=== PATIENT | male | born 1995 | race Caucasian/White ===

== ENCOUNTER 2016-07-02 18:38 | Emergency (ER) | payer OTHER ==
[2016-07-02 18:43] VITALS: BP 120/64; PULSE 64; TEMP 97.8; BMI 21.4
--- NOTE | 2016-07-02 19:45 | PDOC ---
History of Present Illness - History of Present Illness Initial Comments: 07/02/16 19:53 The patient is a 21 year old male with no past medical hx who presents to the ED requesting a physical. The patient reports he has never had a physical and is requesting one at this time. He is also complaining of bilateral testicular pain for months and body pains for the past few years. The patient denies STD testing in the past but reports he is not sexually active. The patient denies any fever, chills The patient denies any abdominal pain, nausea, vomiting, diarrhea The patient denies any dysuria, frequency, hematuria Surgical: None Allergies: NKDA Family hx: Mother has HTN, siblings are alive and well The patient speaks New Zealander, hx obtained through land resource specialist phone, [phone] <Kelli Palma - Last Filed: 07/02/16 23:16> <Selma Spicer - Last Filed: 07/03/16 01:07> - General Chief Complaint: Pain, Acute Stated Complaint: PAIN, ACUTE Time Seen by Provider: 07/02/16 19:21 Past History <Kelli Palma - Last Filed: 07/02/16 23:16> - Past Medical History Other medical history: PATIENT DENIES PAST MEDICAL HISTORY - Psycho/Social/Smoking Cessation Hx Suicidal Ideation: No Smoking History: Current some day smoker Number of Cigarettes Smoked Daily: 0 Information on smoking cessation initiated: No Hx Alcohol Use: Yes (WEEKENDS) Drug/Substance Use Hx: No <Selma Spicer - Last Filed: 07/03/16 01:07> - Past Medical History Allergies/Adverse Reactions: Allergies Allergy/AdvReac Type Severity Reaction Status Date / Time No Known Allergies Allergy Verified 07/02/16 18:43 Home Medications: Ambulatory Orders NK [No Known Home Medication] 07/02/16 Review of Systems - Review of Systems Able to Perform ROS?: Yes Comments:: 07/02/16 19:53 CONSTITUTIONAL: Absent: fever, chills, diaphoresis, generalized weakness, malaise, loss of appetite HEENT: Absent: rhinorrhea, nasal congestion, throat pain, throat swelling, difficulty swallowing, mouth swelling, ear pain, eye pain, visual Changes CARDIOVASCULAR: Absent: chest pain, syncope, palpitations, irregular heart rate, lightheadedness , peripheral edema RESPIRATORY: Absent: cough, shortness of breath, dyspnea with exertion, orthopnea, wheezing, stridor, hemoptysis GASTROINTESTINAL: Absent: abdominal pain, abdominal distension, nausea, vomiting, diarrhea, constipation, melena, hematochezia GENITOURINARY: +Testicular pain. Absent: dysuria, frequency, urgency, hesitancy, hematuria, flank pain MUSCULOSKELETAL: +Muscle pains. Absent: joint swelling SKIN: Absent: rash, itching, pallor HEMATOLOGIC/IMMUNOLOGIC: Absent: easy bleeding, easy bruising, lymphadenopathy, frequent infections ENDOCRINE: Absent: unexplained weight gain, unexplained weight loss, heat intolerance, cold intolerance NEUROLOGIC: Absent: headache, focal weakness or paresthesias, dizziness, unsteady gait, seizure, mental status changes, bladder or bowel incontinence PSYCHIATRIC: Absent: anxiety, depression, suicidal or homicidal ideation, hallucinations. <Kelli Palma - Last Filed: 07/02/16 23:16> *Physical Exam - Vital Signs Last Vital Signs Temp Pulse Resp BP Pulse Ox 97.8 F 64 18 120/64 100 07/02/16 18:39 07/02/16 18:39 07/02/16 18:39 07/02/16 18:39 07/02/16 18:39 - Physical Exam Comments: 07/02/16 19:53 GENERAL: Well developed, well nourished. Awake and alert. No acute distress. HEENT: Normocephalic, atraumatic. PERRLA, EOMI. No conjunctival pallor. Sclera are non- icteric. Moist mucous membranes. Oropharynx is clear. NECK: Supple. Full ROM. No JVD. Carotid pulses 2+ and symmetric, without bruits. No thyromegaly. No lymphadenopathy. CARDIOVASCULAR: Regular rate and rhythm. No murmurs, rubs, or gallops. Distal pulses are 2+ and symmetric. PULMONARY: No evidence of respiratory distress. Lungs clear to auscultation bilaterally. No wheezing, rales or rhonchi. ABDOMINAL: Soft. Non-tender. Non-distended. No rebound or guarding. No organomegaly. Normoactive bowel sounds. MUSCULOSKELETAL +No inguinal lymph nodes or hernias. Normal range of motion at all joints. No bony deformities or tenderness. No CVA tenderness. EXTREMITIES: No cyanosis. No clubbing. No edema. No calf tenderness. SKIN: Warm and dry. Normal capillary refill. No rashes. No jaundice. NEUROLOGICAL: Alert, awake, appropriate. Cranial nerves 2-12 intact. No deficits to light touch and temperature in face, upper extremities and lower extremities. No motor deficits in the in face, upper extremities and lower extremities. Normoreflexic in the upper and lower extremities. Normal speech. Toes are down-going bilaterally. Gait is normal without ataxia. PSYCHIATRIC: Cooperative. Good eye contact. Appropriate mood and affect. <Kelli Palma - Last Filed: 07/02/16 23:16> - Vital Signs Last Vital Signs Temp Pulse Resp BP Pulse Ox 97.8 F 64 18 120/64 100 07/02/16 18:39 07/02/16 18:39 07/02/16 18:39 07/02/16 18:39 07/02/16 18:39 <Selma Spicer - Last Filed: 07/03/16 01:07> ED Treatment Course - LABORATORY CBC & Chemistry Diagram: 07/02/16 20:10 07/02/16 20:10 - RADIOLOGY Radiograph Interpretation: 07/02/16 23:16 US/SCROTUM AND CONTENTS US Scrotal sonogram with testicular Doppler Testicular pain Normal visualization of the right and left testicle including the right and left epididymis with no signs of torsion or mass No ultrasound evidence of epididymitis Normal echogenicity noted bilaterally No epididymal cysts or masses. No findings of varicocele or epididymal orchitis Impression: Normal imaging survey through the scrotum, testicles and epididymis with no mass or torsion and no inflammatory changes with no hydrocele. Reported By: Brant Rea MD 07/02/16 2069 <Kelli Palma - Last Filed: 07/02/16 23:16> - LABORATORY CBC & Chemistry Diagram: 07/02/16 20:10 07/02/16 20:10 <Selma Spicer - Last Filed: 07/03/16 01:07> Medical Decision Making - Medical Decision Making 07/02/16 23:20 21 yo male p/w vague complaints that included testicular pain that was intermittent -he asked several times to have a "complete physical " from head to toe -I used [employer] land resource specialist phone PMH none PSH none\\ family history- sibling alive and well social history- single,current;l unemployed, occasionally smokes tobacco and may have a couple beers on the weekend 07/03/16 01:04 testicular ultrasound -no testicular torsion, no epidydmitis UA negative labs reviewed and cbc and chemistries are wnl negative HIV When a [place] Zealander speaking nurse spoke w this pt ,the pt was primarily concerned with his sexual performance problems and he was requesting pain meds for his "whole body pain" -the pt was told to take OTC tylenol, aleve or motrin for aches and pains and was discharged home <Selma Spicer - Last Filed: 07/03/16 01:07> *DC/Admit/Observation/Transfer - Attestations Scribe Attestion: 07/02/16 19:53 Documentation prepared by Kelli Palma, acting as medical record retrieval specialist for Selma Spicer MD/DO. <Kelli Palma - Last Filed: 07/02/16 23:16> <Selma Spicer - Last Filed: 07/03/16 01:07> Diagnosis at time of Disposition: Testicular discomfort - Discharge Dispostion Disposition: HOME Condition at time of disposition: Stable - Patient Instructions Printed Discharge Instructions: DI for Testicular Pain Additional Instructions: please go to our clinic at [address] [place] [address] to have yor liver function tests followed
[2016-07-02 20:28] LABS: BASOPHIL 0.3 % (0-2.0); EOSINOPHIL 1.4 % (0-4.5); MCH 30.5 pg (25.7-33.7); MCHC 34.1 g/dl (32.0-35.9); MEAN CELL VOLUME 89.5 fl (80-96); MEAN PLT VOLUME 8.7 fl (7.5-11.1); NEUTROPHILS 49.5 % (42.8-82.8); PLATELET COUNT 196 K/MM3 (134-434); RDW 13.1 % (11.9-15.9); WHITE BLOOD COUNT 7.8 K/mm3 (4.0-10.0)
[2016-07-02 20:32] LABS: URINE APPEARANCE TURBID; URINE BILIRUBIN NEGATIVE (NEGATIVE); URINE BLOOD NEGATIVE (NEGATIVE); URINE COLOR YELLOW; URINE GLUCOSE (UA) NEGATIVE (NEGATIVE); URINE KETONE NEGATIVE (NEGATIVE); URINE LEUK ESTERASE NEGATIVE (NEGATIVE); URINE NITRITE NEGATIVE (NEGATIVE); URINE PROTEIN NEGATIVE (NEGATIVE); URINE UROBILINOGEN NEGATIVE E.U./dl (0.2-1.0)
[2016-07-02 21:11] LABS: ALBUMIN 3.8 g/dl (3.4-5.0); ANION GAP 8 (8-16); BILIRUBIN,TOTAL 0.3 mg/dL (0.2-1.0); CALCIUM 8.9 mg/dL (8.5-10.1); CO2 29 mmol/L (21-32); COCKROFT - GAULT 95.89; GLUCOSE,RANDOM 107 mg/dL (74-106); SGPT/ALT 228 U/L (12-78); TOT PROT 6.9 g/dl (6.4-8.2)
[2016-07-02 21:12] LABS: ALK PHOS 79 U/L (45-117)
[2016-07-02 21:15] LABS: SGOT/AST 521 U/L (15-37)
[2016-07-02 22:23] LABS: HIV 1 & 2 AB NEGATIVE; HIV 1 AGp24 NEGATIVE
== END 2016-07-02 23:28 | disposition home or self-care (01) ==
LOC: JER 18:38
DX: N50.812 Left testicular pain (principal); N50.811 Right testicular pain; F17.210 Nicotine dependence, cigarettes, uncomplicated
CPT/HCPCS: 36415; 76870-TC; 80053; 81003; 85025; 87389; 99283-25

== ENCOUNTER 2016-07-25 10:30 | Emergency (ER) | payer OTHER ==
[2016-07-25 10:36] VITALS: BP 121/66; PULSE 79; TEMP 98; BMI 20.8
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
[2016-07-25] MEDS ORDERED: KETOROLAC TROMETHAMINE 60 MG/2 ML VIAL IM ONE (11:33)
[2016-07-25] MEDS ORDERED: KETOROLAC TROMETHAMINE 60 MG/2 ML VIAL ONE (11:37)
== END 2016-07-25 13:10 | disposition home or self-care (01) ==
LOC: JERFT 10:30
PROC: 3E0233Z Introduction of Anti-inflammatory into Muscle, Percutaneous Approach (ICD-10-PCS; principal; 2016-07-25)
DX: M54.5 Low back pain (principal); M25.511 Pain in right shoulder; V49.49XA Driver injured in collision with other motor vehicles in traffic accident, initial encounter; Y92.414 Local residential or business street as the place of occurrence of the external cause; Y93.89 Activity, other specified
CPT/HCPCS: 73030-TC-RT; 99281-25

== ENCOUNTER 2016-11-03 07:42 | Emergency (ER) | payer OTHER ==
[2016-11-03 07:55] VITALS: BP 116/63; PULSE 73; TEMP 97.6; BMI 20.9
[2016-11-03] MEDS ORDERED: IBUPROFEN 600 MG TABLET (FP) PO ONE ×2 (08:17→08:19)
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
== END 2016-11-03 09:48 | disposition home or self-care (01) ==
LOC: JERFT 07:42 → JER 07:42 → JERFT 09:48
DX: J02.0 Streptococcal pharyngitis (principal); F17.210 Nicotine dependence, cigarettes, uncomplicated
CPT/HCPCS: 87070; 87077; 87430; 99281-25

== ENCOUNTER 2016-12-25 01:29 | Emergency (ER) | payer OTHER ==
[2016-12-25 02:18] VITALS: BP 119/77; PULSE 87; TEMP 97.9; BMI 21.7
[2016-12-25] MEDS ORDERED: SODIUM CHLORIDE 500 ML IV STA (02:31)
[2016-12-25] MEDS ORDERED: CLINDAMYCIN 600MG PREMIX IVPB 50 ML IVPB ONE (02:31)
[2016-12-25] MEDS ORDERED: morphine CARPU-JECT 4 MG/1 ML DISP.SYRIN IVPUSH ONE (02:32)
--- NOTE | 2016-12-25 02:38 | PDOC ---
History of Present Illness - General Chief Complaint: Abscess Boil Stated Complaint: ABSCESS ON RIGHT ARM Time Seen by Provider: 12/25/16 02:27 History Source: Patient Exam Limitations: No Limitations - History of Present Illness Initial Comments: 12/25/16 02:34 21yo Male patient presents to ED c/o abscess to right axilla region. Patient states symptoms began 4 days ago, but tonight worsened with pus/blood draining from site. Patient denies fever. Associated axillary pain. Denies any other complaints at this time. Timing/Duration: reports: changing over time, getting worse. denies: just prior to arrival, other, constant, gone now, intermittent, week, yesterday, this afternoon, this evening, this morning Severity: Yes: severe. No: mild, moderate Location: reports: other (See HPI) Respiratory Risk Factors: denies: no cause identified, exposure to illness, exposure to allergen, foods, insect bite, insect sting, medications, pollen, soaps, other Modifying Factors: worse with: antihistamine, calamine lotion, prednisone, scratching, topical steriods, other Associated Symptoms: denies: denies symptoms, blisters, change in skin texture, edema, fever, flushing, headache, hives, jaundice, malaise, nasal congestion, numbness, pallor, paresthesia, petechiae, rash, sore throat, swelling/mass/lumps , tingling, other Past History - Travel Traveled outside of the country in the last 30 days: No Close contact w/someone who was outside of country & ill: No - Past Medical History Allergies/Adverse Reactions: Allergies Allergy/AdvReac Type Severity Reaction Status Date / Time No Known Allergies Allergy Verified 12/25/16 02:17 Home Medications: Ambulatory Orders Clindamycin [Cleocin -] 150 mg PO TID #30 capsule 12/25/16 Clindamycin [Cleocin -] 300 mg PO TID #30 capsule 12/25/16 Oxycodone HCl/Acetaminophen [Endocet 7.5-325 mg Tablet] 1 each PO Q8H PRN #12 tablet MDD 3 tabs 12/25/16 - Suicide/Smoking/Psychosocial Hx Smoking History: Never smoked Have you smoked in the past 12 months: Yes Number of Cigarettes Smoked Daily: 1 Information on smoking cessation initiated: No 'Breaking Loose' booklet given: 11/03/16 Hx Alcohol Use: No Drug/Substance Use Hx: No Substance Use Type: None Review of Systems - Review of Systems Able to Perform ROS?: Yes Is the patient limited Cymro proficient: No Constitutional: No: Fever Integumentary: Yes: Other (Abscess ) All Other Systems: Reviewed and Negative *Physical Exam - Vital Signs Last Vital Signs Temp Pulse Resp BP Pulse Ox 97.9 F 87 14 119/77 97 12/25/16 02:17 12/25/16 02:17 12/25/16 02:17 12/25/16 02:17 12/25/16 02:17 - Physical Exam General Appearance: Yes: Nourished, Appropriately Dressed, Apparent Distress, Mild Distress. No: Moderate Distress, Severe Distress Respiratory/Chest: positive: Lungs Clear, Normal Breath Sounds. negative: Chest Tender, Respiratory Distress, Accessory Muscle Use, Labored Respiration, Rapid RR, Paradoxal Breathing, Rhonchi, Stridor, Wheezing Cardiovascular: positive: Regular Rhythm, Regular Rate Musculoskeletal: positive: Normal Inspection. negative: CVA Tenderness, Decreased Range of Motion, Vertebral Tenderness Extremity: positive: Normal Capillary Refill, Normal Inspection, Normal Range of Motion. negative: Pedal Edema, Swelling, Calf Tenderness, Erythema, Inflammation Integumentary: positive: Normal Color, Dry, Warm, Erythema, Swelling, Other ( Large active draining abscess to right axillary region. Moderate erythema and tenderness noted.) Neurologic: positive: tile burner II-XII NML intact, Fully Oriented, Alert, Normal Mood/ Affect, Normal Response, Motor Strength 5/5 Procedures - Consent Consent obtained: Verbal - Incision and Drainage I&D Site: Right: Axilla Betadine cleansed: Yes Anesthesia: 1% Lidocaine Volume(ml): 5 Blade Size: 11 Attempts: 1 Iodinated Packin/4 in Plain Packing: No Complications: none Dressing: Yes Progress: 12/25/16 02:59 Patient tolerated procedure well. Verbal consent given. I&D done in sterile fashion. ED Treatment Course - LABORATORY CBC & Chemistry Diagram: 12/25/16 03:00 12/25/16 03:00 *DC/Admit/Observation/Transfer Diagnosis at time of Disposition: Cellulitis and abscess of other specified site - Discharge Dispostion Disposition: HOME Condition at time of disposition: Improved Admit: No - Prescriptions Prescriptions: Clindamycin [Cleocin -] 150 mg PO TID #30 capsule Clindamycin [Cleocin -] 300 mg PO TID #30 capsule Oxycodone HCl/Acetaminophen [Endocet 7.5-325 mg Tablet] 1 each PO Q8H PRN #12 tablet MDD 3 tabs PRN Reason: Severe Pain - Patient Instructions Printed Discharge Instructions: DI for Incision and Drainage of a Skin Abscess Additional Instructions: Regrese a mallory servicio de urgencias en 2 floyd para retirar el empaque y evaluar la herida. [place] los medicamentos segn lo prescrito. Usted debe jair Clindamycin 450 miligramos anu veces al da x 10 floyd. Endocet para el dolor no gatito por Motrin o Tylenol. No conduzca, dewayne alcohol ni opere maquinaria pesada mientras est tomando mallory medicamento. Regresar si desarrolla empeoramiento de sntomas, fiebre, nuseas, vmitos, sudoracin, escalofros, aumento de dolor o cualquier preocupacin para renu evaluacin posterior. Return to this emergency department in 2 days for removal of packing and wound evaluation. Take medications as prescribed. You should be taking Clindamycin 450 milligrams three times a day x 10 days. Endocet for pain not relieve by Motrin or Tylenol. Do not drive, drink alcohol or operate heavy machinery while taking this medication. Return if you develop worsening symptoms, fever, nausea , vomiting, sweating, chills, increase pain or any concerns for further evaluation. Print Language: SYRIAN - Post Discharge Activity Forms/Work/School Notes: Back to Work
[2016-12-25] MEDS ORDERED: CLINDAMYCIN PHOSPHATE 600 MG/4 ML VIAL ONE (03:09)
[2016-12-25] MEDS ORDERED: morphine CARPU-JECT 10 MG/1 ML DISP.SYRIN ONE (03:09)
[2016-12-25 03:18] LABS: BASOPHIL 0.3 % (0-2.0); EOSINOPHIL 0.6 % (0-4.5); MCH 29.9 pg (25.7-33.7); MCHC 33.7 g/dl (32.0-35.9); MEAN CELL VOLUME 88.8 fl (80-96); MEAN PLT VOLUME 8.6 fl (7.5-11.1); NEUTROPHILS 72.2 % (42.8-82.8); PLATELET COUNT 240 K/MM3 (134-434); RDW 13.2 % (11.9-15.9); WHITE BLOOD COUNT 15.3 K/mm3 (4.0-10.0)
[2016-12-25 03:45] LABS: ALBUMIN 4.4 g/dl (3.4-5.0); ALK PHOS 76 U/L (45-117); ANION GAP 9 (8-16); BILIRUBIN,TOTAL 0.5 mg/dL (0.2-1.0); CALCIUM 9.8 mg/dL (8.5-10.1); CO2 31 mmol/L (21-32); GLUCOSE,RANDOM 89 mg/dL (74-106); SGOT/AST 18 U/L (15-37); SGPT/ALT 24 U/L (12-78); TOT PROT 7.8 g/dl (6.4-8.2)
== END 2016-12-25 04:43 | disposition home or self-care (01) ==
LOC: JER 01:29
PROC: 0H9BXZZ Drainage of Right Upper Arm Skin, External Approach (ICD-10-PCS; principal; 2016-12-25)
DX: L02.411 Cutaneous abscess of right axilla (principal)
CPT/HCPCS: 36415; 80053; 85025; 87040; 99281-25

== ENCOUNTER 2017-03-27 16:19 | Emergency (ER) | payer OTHER ==
[2017-03-27 16:27] VITALS: BP 112/62; PULSE 61; TEMP 97.5; BMI 21.7
--- NOTE | 2017-03-27 17:23 | PDOC ---
Rapid Medical Evaluation Chief Complaint: Nausea/Vomiting Time Seen by Provider: 03/27/17 16:24 Medical Evaluation: Allergies Allergy/AdvReac Type Severity Reaction Status Date / Time No Known Allergies Allergy Verified 03/27/17 16:26 Vital Signs Temp Pulse Resp BP Pulse Ox 97.5 F L 61 19 112/62 99 03/27/17 16:23 03/27/17 16:23 03/27/17 16:23 03/27/17 16:23 03/27/17 16:23 03/27/17 17:22 The patient presents with a chief complaint of: Nausea and vomiting for one day. Vomited once, feels a little dizzy. Pt. states he drank alcohol last night. Requesting IVF I have performed a brief in-person evaluation of this patient; Pertinent physical exam findings: epigastric tenderness I have ordered the following: CBC, CMP, UA The patient will proceed to the ED for further evaluation.
[2017-03-27 18:29] LABS: BASO % 0.6 % (0-2.0); EOS % 3.1 % (0-4.5); HEMOGLOBIN 16.2 GM/dL (11.7-16.9); LYMPH % 42.8 % (8-40); MCH 29.6 pg (25.7-33.7); MCHC 33.1 g/dl (32.0-35.9); MEAN CELL VOLUME 89.5 fl (80-96); MEAN PLT VOLUME 8.8 fl (7.5-11.1); MONO % 9.2 % (3.8-10.2); NEUT % 44.3 % (42.8-82.8); PLATELET COUNT 222 K/MM3 (134-434); RBC 5.47 M/mm3 (4.00-5.60); RDW 12.9 % (11.9-15.9); URINE APPEARANCE CLEAR; URINE BILIRUBIN NEGATIVE (NEGATIVE); URINE BLOOD NEGATIVE (NEGATIVE); URINE COLOR YELLOW; URINE GLUCOSE (UA) NEGATIVE (NEGATIVE); URINE KETONE NEGATIVE (NEGATIVE); URINE LEUK ESTERASE NEGATIVE (NEGATIVE); URINE NITRITE NEGATIVE (NEGATIVE); URINE PROTEIN NEGATIVE (NEGATIVE); URINE UROBILINOGEN NEGATIVE mg/dL (0.2-1.0); WHITE BLOOD COUNT 5.8 K/mm3 (4.0-10.0)
[2017-03-27 19:03] LABS: ALBUMIN 4.2 g/dl (3.4-5.0); ALK PHOS 82 U/L (45-117); ANION GAP 1 (8-16); BILIRUBIN,TOTAL 0.5 mg/dL (0.2-1.0); BLOOD UREA NITROGEN 10 mg/dL (7-18); CALCIUM 9.3 mg/dL (8.5-10.1); CHLORIDE 106 mmol/L (98-107); CO2 32 mmol/L (21-32); CREATININE 0.9 mg/dL (0.7-1.3); GLUCOSE,RANDOM 85 mg/dL (74-106); SGOT/AST 12 U/L (15-37); SGPT/ALT 22 U/L (12-78); SODIUM 139 mmol/L (136-145); TOT PROT 7.7 g/dl (6.4-8.2)
[2017-03-27] MEDS ORDERED: MAG HYDROX/AL HYDROX/SIMETH 355 ML ORAL.SUSP PO ONE (21:41)
[2017-03-27] MEDS ORDERED: ONDANSETRON *ODT* 4 MG TABLET SL ONE (21:41)
--- NOTE | 2017-03-27 21:41 | PDOC ---
Attending Attestation - HPI HPI: 03/27/17 21:46 The patient is a 22 year old male with no significant PMH who presents to the emergency department with 2 days of abdominal pain and vomiting with subjective fever. The patient reports associated chills and night sweats with his subjective fever. He also notes associated dizziness with his vomiting. He describes his abdominal pain as localized along the midline. Allergies: NKA <Hansel Armstrong - Last Filed: 03/27/17 21:55> - Resident Resident Name: Nayan Swanson - ED Attending Attestation I have performed the following: I have examined & evaluated the patient, The case was reviewed & discussed with the resident, I agree w/resident's findings & plan, Exceptions are as noted - Physicial Exam PE: 03/28/17 05:27 Physical Exam General Appearance: Yes: Appropriately Dressed. No: Apparent Distress, Intoxicated HEENT: positive: EOMI, KEVIN, Normal ENT Inspection, Normal Voice, TMs Normal, Pharynx Normal. negative: Pale Conjunctivae, Photophobia, Scleral Icterus (R), Scleral Icterus (L) Neck: positive: Trachea midline, Normal Thyroid, Supple. negative: Tender, Rigid, Carotid bruit, Stridor, Lymphadenopathy (R), Lymphadenopathy (L), Thyromegaly Respiratory/Chest: positive: Lungs Clear, Normal Breath Sounds. negative: Chest Tender, Respiratory Distress, Accessory Muscle Use, Labored Respiration, RES, Crackles, Rales, Rhonchi, Stridor, Wheezing, Dullness Cardiovascular: positive: Regular Rhythm, Regular Rate, S1, S2. negative: Edema , JVD, Murmur, Bradycardia, Tachycardia Vascular Pulses: Dorsalis-Pedis (R): 2+, Doralis-Pedis (L): 2+ Gastrointestinal/Abdominal: positive: Normal Bowel Sounds, Flat, Soft. negative : Tender, Organomegaly, Pulsatile Mass, Increased Bowel Sounds, Decreased BS, Distended, Guarding, Rebound, Hernia, Hepatomegaly, Spleenomegaly Lymphatic: negative: Adenopathy, Tenderness Musculoskeletal: positive: Normal Inspection. negative: CVA Tenderness, Decreased Range of Motion Extremity: positive: Normal Capillary Refill, Normal Inspection, Normal Range of Motion, Pelvis Stable. negative: Tender, Pedal Edema, Swelling, Erythema Integumentary: positive: Normal Color, Dry, Warm. negative: Cyanotic, Erythema , Jaundice, Rash Neurologic: positive: injector assembler II-XII NML intact, Fully Oriented, Alert, Normal Mood/ Affect, Motor Strength 5/5. negative: EOM Palsy, Facial Droop, Sensory Deficit - Medical Decision Making 03/28/17 05:27 pt treated and released. <Cody Rodgers - Last Filed: 03/28/17 05:27>
--- NOTE | 2017-03-27 22:06 | PDOC ---
History of Present Illness - General Chief Complaint: Nausea/Vomiting Stated Complaint: PAIN Time Seen by Provider: 03/27/17 16:24 History Source: Patient Exam Limitations: Language Barrier - History of Present Illness Initial Comments: 03/27/17 22:00 Patient is a 22M with no significant medical history here today complaining of 2 days of nausea and vomiting. He denies abdominal pain, fever, blood in vomit, dysuria. He states his last bowel movement was two days ago. He does complain of associated chills and decreased PO intake but is able to keep food down. He says he drank one shot of vodka last night. He denies eating today. No sick contacts. No flu shot. Past History - Past Medical History Allergies/Adverse Reactions: Allergies Allergy/AdvReac Type Severity Reaction Status Date / Time No Known Allergies Allergy Verified 03/27/17 16:26 Home Medications: Ambulatory Orders Clindamycin [Cleocin -] 150 mg PO TID #30 capsule 12/25/16 Clindamycin [Cleocin -] 300 mg PO TID #30 capsule 12/25/16 Oxycodone HCl/Acetaminophen [Endocet 7.5-325 mg Tablet] 1 each PO Q8H PRN #12 tablet MDD 3 tabs 12/25/16 COPD: No - Suicide/Smoking/Psychosocial Hx Smoking History: Never smoked Have you smoked in the past 12 months: Yes Number of Cigarettes Smoked Daily: 2 Information on smoking cessation initiated: Yes 'Breaking Loose' booklet given: 03/27/17 Hx Alcohol Use: Yes (occasional) Drug/Substance Use Hx: Yes (Marijuana) Substance Use Type: None Review of Systems - Review of Systems Comments:: 03/27/17 22:04 GENERAL/CONSTITUTIONAL: No fever. Positive for chills and weakness. HEAD, EYES, EARS, NOSE AND THROAT: No change in vision. No sore throat. CARDIOVASCULAR: No chest pain or shortness of breath RESPIRATORY: No cough, wheezing, or hemoptysis. GASTROINTESTINAL: Positive for nausea and vomiting. Negative for diarrhea or constipation. GENITOURINARY: No dysuria, frequency, or change in urination. MUSCULOSKELETAL: No joint or muscle swelling or pain. No neck or back pain. SKIN: No rash NEUROLOGIC: No headache, vertigo, loss of consciousness, or change in strength/ sensation. ENDOCRINE: No increased thirst. No abnormal weight change HEMATOLOGIC/LYMPHATIC: No anemia, easy bleeding, or history of blood clots. ALLERGIC/IMMUNOLOGIC: No hives or skin allergy. *Physical Exam - Vital Signs Last Vital Signs Temp Pulse Resp BP Pulse Ox 97.5 F L 61 19 112/62 99 03/27/17 16:23 03/27/17 16:23 03/27/17 16:23 03/27/17 16:23 03/27/17 16:23 - Physical Exam Comments: 03/27/17 22:05 GENERAL: Awake, alert, and fully oriented, in no acute distress HEAD: No signs of trauma, normocephalic, atraumatic EYES: PERRLA, EOMI, sclera anicteric, conjunctiva clear ENT: Auricles normal inspection, hearing grossly normal, nares patent, oropharynx clear without exudates. Moist mucosa NECK: Normal ROM, supple, no lymphadenopathy, JVD, or masses LUNGS: No distress, speaks full sentences, clear to auscultation bilaterally HEART: Regular rate and rhythm, normal S1 and S2, no murmurs, rubs or gallops, peripheral pulses normal and equal bilaterally. ABDOMEN: Soft, nontender, normoactive bowel sounds. No guarding, no rebound. No masses EXTREMITIES: Normal inspection, Normal range of motion, no edema. No clubbing or cyanosis. NEUROLOGICAL: Cranial nerves II through XII grossly intact. Normal speech, no focal sensorimotor deficits SKIN: Warm, Dry, normal turgor, no rashes or lesions noted. ED Treatment Course - LABORATORY CBC & Chemistry Diagram: 03/27/17 18:19 03/27/17 18:19 - ADDITIONAL ORDERS Additional order review: Laboratory Results 03/27/17 03/27/17 18:19 18:19 Sodium 139 Potassium 5.0 D Chloride 106 Carbon Dioxide 32 Anion Gap 1 L BUN 10 D Creatinine 0.9 Creat Clearance w eGFR > 60 Random Glucose 85 Calcium 9.3 Total Bilirubin 0.5 AST 12 L D ALT 22 Alkaline Phosphatase 82 Total Protein 7.7 Albumin 4.2 Urine Color Yellow Urine Appearance Clear Urine pH 6.0 Ur Specific [place] 1.018 Urine Protein Negative Urine Glucose (UA) Negative Urine Ketones Negative Urine Blood Negative Urine Nitrite Negative Urine Bilirubin Negative Urine Urobilinogen Negative Ur Leukocyte Esterase Negative 03/27/17 18:19 RBC 5.47 MCV 89.5 MCHC 33.1 RDW 12.9 MPV 8.8 Neutrophils % 44.3 D Lymphocytes % 42.8 H D Monocytes % 9.2 Eosinophils % 3.1 D Basophils % 0.6 Medical Decision Making - Medical Decision Making 03/27/17 22:06 Patient is a 22M here today with 2 days of nausea/vomiting. Vital signs stable and normal. Appears well. No episodes of vomiting in the department. Labs drawn in triage, show: Laboratory Tests 03/27/17 03/27/17 03/27/17 18:19 18:19 18:19 WBC 5.8 D Hgb 16.2 Hct 49.0 Plt Count 222 BUN 10 D Creatinine 0.9 Urine Nitrite Negative Ur Leukocyte Esterase Negative CBC normal. CMP normal. UA negative. Will treat with maalox and zofran odt. Will then PO challenge and likely discharge. 03/27/17 23:01 Passed PO challenge. Ambulatory and asking to go home. Will discharge. *DC/Admit/Observation/Transfer Diagnosis at time of Disposition: Vomiting - Discharge Dispostion Disposition: HOME Condition at time of disposition: Good Admit: No - Referrals - Patient Instructions Printed Discharge Instructions: DI for Vomiting -- Adult Additional Instructions: Please follow up with your primary care physician next week. Please return if you have any new, worsening or concerning symptoms. Print Language: KINYARWANDA - Post Discharge Activity
[2017-03-27] MEDS ORDERED: MAG HYDROX/AL HYDROX/SIMETH 30 ML UNIT-DOSE CUP ONE (22:37)
[2017-03-27] MEDS ORDERED: ONDANSETRON *ODT* 4 MG TABLET ONE (22:37)
== END 2017-03-27 23:29 | disposition home or self-care (01) ==
LOC: JER 16:19
DX: R11.10 Vomiting, unspecified (principal)
CPT/HCPCS: 36415; 80053; 81003; 85025; 99281-25